=== PATIENT | female | born 1950 ===

== ENCOUNTER 2021-10-19 09:45 | Outpatient (CLI) | payer OTHER | END 2021-10-19 09:52 | disposition home or self-care (01) | LOC: TOM 09:45 | PROVIDERS: ATTEND Surgery | DX: K57.30 Diverticulosis of large intestine without perforation or abscess without bleeding (principal); R10.9 Unspecified abdominal pain; K59.09 Other constipation | CPT/HCPCS: 74177; Q9965 ==